=== PATIENT | female | born 1990 | race Caucasian/White ===

== ENCOUNTER 2017-10-12 11:53 | Emergency (ER) | payer OTHER ==
[~2017-10-12] VITALS: Ht 160 cm; Wt 55.8 kg
[2017-10-12 12:14] VITALS: BP 131/71; Ht 160 cm; Wt 55.8 kg
== END 2017-10-12 13:30 | disposition home or self-care (01) ==
LOC: ED 11:53
DX: J03.90 Acute tonsillitis, unspecified (principal); H92.01 Otalgia, right ear; J06.9 Acute upper respiratory infection, unspecified

== ENCOUNTER 2018-10-25 22:21 | Emergency (ER) | payer OTHER ==
[~2018-10-25] VITALS: Ht 160 cm; Wt 55.3 kg
[2018-10-25 22:24] VITALS: Ht 160 cm; Wt 55.3 kg
[2018-10-26 00:18] LABS: AMPHETAMINE QUAL UR NONE DETECTED (See below)
[2018-10-26 01:40] VITALS: BP 99/50
== END 2018-10-26 01:35 | disposition home or self-care (01) ==
LOC: ED 22:21
PROVIDERS: Emergency Medicine
DX: S46.811A Strain of other muscles, fascia and tendons at shoulder and upper arm level, right arm, initial encounter (principal); Z88.1 Allergy status to other antibiotic agents; X58.XXXA Exposure to other specified factors, initial encounter; Y93.89 Activity, other specified; Y92.89 Other specified places as the place of occurrence of the external cause; Y99.8 Other external cause status
CPT/HCPCS: J1885

== ENCOUNTER 2018-10-27 08:16 | Emergency (ER) | payer OTHER ==
[~2018-10-27] VITALS: Ht 157.5 cm; Wt 55.5 kg
[2018-10-27 08:20] VITALS: BP 109/68; Ht 157.5 cm; Wt 55.5 kg
== END 2018-10-27 08:48 | disposition home or self-care (01) ==
LOC: ED 08:16
DX: L03.111 Cellulitis of right axilla (principal); Z88.8 Allergy status to other drugs, medicaments and biological substances

== ENCOUNTER 2018-10-30 20:28 | Emergency (ER) | payer OTHER ==
[~2018-10-30] VITALS: Ht 160 cm; Wt 56.2 kg
[2018-10-30 20:38] VITALS: Ht 160 cm; Wt 56.2 kg
[2018-10-31 02:05] VITALS: BP 108/58
== END 2018-10-31 02:01 | disposition home or self-care (01) ==
LOC: ED 20:28
DX: R07.89 Other chest pain (principal); M79.621 Pain in right upper arm; R11.10 Vomiting, unspecified
CPT/HCPCS: J1885; J3010

== ENCOUNTER 2019-02-03 12:41 | Emergency (ER) | payer OTHER ==
[~2019-02-03] VITALS: Ht 160 cm; Wt 54.4 kg
[2019-02-03 12:43] VITALS: BP 123/71; Ht 160 cm; Wt 54.4 kg
== END 2019-02-03 13:34 | disposition home or self-care (01) ==
LOC: ED 12:41
DX: T15.11XA Foreign body in conjunctival sac, right eye, initial encounter (principal); Z98.890 Other specified postprocedural states; Z88.8 Allergy status to other drugs, medicaments and biological substances; W45.8XXA Other foreign body or object entering through skin, initial encounter; Y93.89 Activity, other specified; Y92.89 Other specified places as the place of occurrence of the external cause; Y99.8 Other external cause status

== ENCOUNTER 2020-09-03 15:01 | Emergency (ER) | payer SELFPAY ==
[~2020-09-03] VITALS: Ht 160 cm; Wt 54.4 kg
[2020-09-03 15:05] VITALS: BP 103/67; Ht 160 cm; Wt 54.4 kg
== END 2020-09-03 17:05 | disposition home or self-care (01) ==
LOC: ED 15:01
DX: R05 Cough (principal); R06.02 Shortness of breath; R50.9 Fever, unspecified; Z20.828 Contact with and (suspected) exposure to other viral communicable diseases; Z91.018 Allergy to other foods
CPT/HCPCS: U0003